=== PATIENT | male | born 1980 | race Caucasian/White ===

== ENCOUNTER 2016-10-07 04:02 | Outpatient (CLI) | payer OTHER | END 2016-10-07 04:03 | disposition short-term general hospital (02) | DX: R40.20 Unspecified coma (principal) | CPT/HCPCS: A0425; A0433; A0888 ==

== ENCOUNTER 2016-10-25 20:06 | Outpatient (CLI) | payer OTHER | END 2016-10-25 20:07 | disposition home or self-care (01) | DX: I82.612 Acute embolism and thrombosis of superficial veins of left upper extremity (principal) ==

== ENCOUNTER 2022-12-01 07:26 | Outpatient (CLI) | payer OTHER ==
--- NOTE | 2022-12-01 13:35 | MRI Report ---
PROCEDURE: ELBOW WO - RT INDICATIONS: RIGHT ELBOW PAIN TECHNIQUE: Noncontrast coronal proton density fast spin echo and T2 fast spin echo with fat saturation, axial an d sagittal T1 spin echo and T2 fast spin echo with fat saturation through the elbow. COMPARISON: None. FINDINGS: Image quality: Excellent. Lateral structures: The lateral ulnar collateral ligament and radial collateral ligament both appear intact. The overlying common extensor tendon also appears normal. Medial structures: The ulnar collateral ligament appears mildly thickened. The overlying common fle xor tendon appears thickened with intrasubstance T2 hyperintense signal and surrounding edema. The ul manav nerve appears normal in size and signal within the cubital tunnel. Anterior structures: Distal biceps tendon is thickened at its insertion on proximal radius with smal l to moderate amount of surrounding fluid. The brachialis tendon is intact. The median and radial everardo rovascular bundles appear normal; no focal muscle atrophy to suggest nerve impingement. Posterior structures: Distal triceps tendinosis at its proximal olecranon insertion is seen. No olecr anon bursal fluid. Bone and cartilage: No bone marrow contusions or fractures. No osteochondral injuries. IMPRESSION: 1. Tendinosis and low to moderate grade partial-thickness tear involving common flexor tendon origin at medial epicondyle. Mild sprain involving ulnar collateral ligament. 2. Tendinosis and low to moderate grade partial-thickness tear involving distal biceps tendon at its insertion on proximal radius with surrounding fluid and soft tissue edema. 3. Distal biceps tendinosis. 4. No marrow edema. No fracture or dislocation. No osteochondral injuries. Reviewed by: Jagjit Cain MD on 12/01/2022 1:34 PM PDT Approved by: Jagjit Cain MD on 12/01/2022 1:34 PM PDT Station ID: [id number]
== END 2022-12-01 07:27 | disposition home or self-care (01) ==
LOC: DI 07:26
DX: S56.211A Strain of other flexor muscle, fascia and tendon at forearm level, right arm, initial encounter (principal); S53.441A Ulnar collateral ligament sprain of right elbow, initial encounter; S46.211A Strain of muscle, fascia and tendon of other parts of biceps, right arm, initial encounter

== ENCOUNTER 2022-12-13 10:42 | Outpatient (CLI) | payer OTHER | END 2022-12-13 10:43 | disposition home or self-care (01) | LOC: LAB 10:42 | DX: Z31.9 Encounter for procreative management, unspecified (principal) | CPT/HCPCS: 36415 ==